=== PATIENT | female | born 1995 | race African-American/Black ===

== ENCOUNTER 2017-03-05 21:41 | Emergency (ER) | payer OTHER ==
[~2017-03-05] VITALS: Ht 170.2 cm; Wt 87.2 kg
[2017-03-05 21:47] VITALS: TEMP 36.9; Ht 170.2 cm; Wt 87.2 kg
[2017-03-05] MEDS: SODIUM CHLORIDE 0.9% 1000ML 1,000 ML IV ONE (22:08)
[2017-03-05] MEDS: XYLOCAINE 1%/SOD BICARB 20 ML VIAL INFIL ONE (22:11)
[2017-03-05] MEDS: ONDANSETRON INJ 2 MG/ML 2 ML VIAL IV STA (22:11)
[2017-03-05] MEDS: MoRPHine SULFATE 4 MG/ML 1 ML CARP\\VIAL IV ONE (22:12)
[2017-03-05 22:37] LABS: HEMATOCRIT 42.3 % (37-47); MEAN CELL VOLUME 82.8 fL (80-100); MEAN CORPUSCULAR HEMOGLOBIN 28.4 pg (25-34); MEAN CORPUSCULAR HGB CONC 34.3 g/dl (32-36); MEAN PLATELET VOLUME 10.8 fL (7.4-10.4); PLATELET COUNT 349 K/uL (130-400); RED BLOOD COUNT 5.11 M/uL (4.2-5.4); WHITE BLOOD COUNT 10.74 K/uL (4.8-10.8)
--- NOTE | 2017-03-05 22:38 | DIAGNOSTIC IMAGING REPORT ---
CHEST ONE VIEW PORTABLE CLINICAL HISTORY: 21 years-old Female presenting with Syncope and fall. Right side chest wall injury. TECHNIQUE: Portable upright AP view of the chest was obtained. COMPARISON: None. FINDINGS: Cardiomediastinal silhouette normal. Lungs and pleural spaces clear. Osseous structures normal. Upper abdomen normal. IMPRESSION: 1. No acute cardiopulmonary disease. Electronically signed by: Avila Rodriguez M.D. 03/05/2017 10:37 PM Dictated Date/Time: 03/05/2017 10:36 PM
--- NOTE | 2017-03-05 22:48 | DIAGNOSTIC IMAGING REPORT ---
HEAD WITHOUT CONTRAST (CT) CLINICAL HISTORY: 21 years-old Female presenting with Syncope and fall. Left side forehead lac. TECHNIQUE: Multidetector CT imaging of the head was performed without the use of intravenous contrast. IV contrast: None. A dose lowering technique was used consistent with the principles of ALARA (as low as reasonably achievable). COMPARISON: None. CT DOSE (mGy.cm): The estimated cumulative dose is 638.56 mGycm. FINDINGS: Third Cook topogram: Unremarkable. Subcutaneous defect over the left frontal region consistent with laceration. This extends to the outer table of the calvarium. No subjacent osseous injury. Ventricles and sulci normal in size. Brain parenchyma normal in appearance with preserved lopez-white differentiation. No mass effect or midline shift. No hemorrhage or acute territorial infarct. No extra-axial fluid collection. Paranasal sinuses and mastoid air cells clear. Calvarium intact. IMPRESSION: 1. No acute intracranial pathology. 2. Left frontal laceration extending to the outer table of the calvarium. No subjacent osseous injury. Electronically signed by: Avila Rodriguez M.D. 03/05/2017 10:47 PM Dictated Date/Time: 03/05/2017 10:44 PM
[2017-03-05 22:53] LABS: BUN/CREATININE RATIO 11.3 (10-20); CALCIUM 8.8 mg/dl (8.5-10.1); CREATININE 0.89 mg/dl (0.60-1.20); POTASSIUM 3.2 mmol/L (3.5-5.1)
[2017-03-05 23:03] LABS: ALB/GLOB RATIO 1.1 (0.9-2); THYROID STIMULATING HORMONE 1.31 uIu/ml (0.300-4.500)
[2017-03-05 23:34] LABS: BASO ABS # 0.11 K/uL (0-0.2); COMPLETE YES; HYPERSEGMENTED POLYS 1+; LYMPH ABS # 4.51 K/uL (1.2-3.4); VACUOLIZATION 1+; VARIANT LYM ABS # 1.72 K/uL
[2017-03-06 00:56] VITALS: BP 121/72; PULSE 71; O2SAT 97
--- NOTE | 2017-03-06 03:46 | EMERGENCY ROOM VISIT NOTE ---
History First contact with patient: 21:46 Chief Complaint: SYNCOPE Stated Complaint: SYNCOPE, LACERATION ABOVE EYE Nursing Triage Summary: pt brought to main ED by EMS. pt donated plasma around 15:00, did not eat after donating. pt states she got up to make food, felt dizzy, went outside for some air and had a syncopal episode. pt hit head on curb during syncope, EMS reports large lac above left eyebrow, bleeding controlled preshospital, dressing in place. pt denies LOC, states "i was just so dizzy." upon arrival, pt alert and oriented x4. breathing WNL. able to ambulate to litter from stretcher. pt rates pain in head 8/10 History of Present Illness The patient is a 21 year old female who presents to the Emergency Room with complaints of syncopal episode with head injury that occurred just prior to arrival. The patient considers herself usually healthy and does not report chronic medical disease. She was feeling at her baseline today and donated plasma around 6-1/2 hours ago. The patient was able to go home and go about the remainder of her day. As it approached dinnertime she began to cook chicken , and states that she felt claustrophobic. The patient was also feeling dizzy, and decided to go outside for fresh air. The patient states that she went outside, suffered her syncopal episode, and evidently she struck the left side of her head on concrete. The patient arrives via EMS and has evidently been acting appropriate since the injury. She believes she is up-to-date on her tetanus. She does not take medication on a regular basis. She has an IUD and denies chance of . She rates her current discomfort an 8/10 has not taken anything [id number] for her symptoms. Review of Systems More than 10 systems were reviewed and otherwise negative with the exception of history of present illness. Past Medical/Surgical History No chronic medical disease Family History No pertinent family history Social History Smoking Status: Never Smoker Occupation Status: [employer] student Current/Historical Medications No Active Prescriptions or Reported Meds Allergies Coded Allergies: No Known Allergies (Unverified , 03/05/17) Physical Exam Vital Signs Date Time Temp Pulse Resp B/P (MAP) Pulse Ox O2 Delivery O2 Flow Rate FiO2 03/06/17 00:56 71 18 121/72 97 9/27/17 00:08 81 18 96 Room Air 03/05/17 22:16 92 03/05/17 21:47 36.9 98 18 129/87 95 Room Air Physical Exam VITALS: Vitals are noted on the nurse's note and reviewed by myself. Vital signs stable. GENERAL: Well-developed, well-nourished, black female who appears mildly uncomfortable but cooperative. HEAD: No booth sign or raccoon eyes. There is a C-shaped complicated 4.0 cm laceration through the left eyebrow to the left upper forehead. This does gape and will require repair. EARS: External ear normal. External auditory canals clear, tympanic membranes pearly lopez without erythema or effusion bilaterally.No hemotympanum EYES: Pupils equal round and reactive to light and accommodation. Conjunctivae without injection, sclerae without icterus. Extraocular movements intact. NOSE: Patent, turbinates without inflammation or discharge. MOUTH: Mucous membranes moist. Tonsils are not enlarged. Pharynx without erythema, blood, or exudate. Uvula midline. Airway patent. NECK: Supple without nuchal rigidity. No lymphadenopathy. No thyromegaly. Cervical spine is nontender. HEART: Regular rate and rhythm without murmurs gallops or rubs. LUNGS: Clear to auscultation bilaterally without wheezes, rales or rhonchi. No retractions or accessory muscle use. CHEST WALL: Mild tenderness appreciated over the right side ribs roughly from the fourth to 7 distribution laterally. No crepitus or flailing. ABDOMEN: Positive normal bowel sounds x 4. Soft, nontender, without masses or organomegaly. No guarding or rebound tenderness. MUSCULOSKELETAL: No muscle atrophy, erythema, or edema noted. Full range of motion without joint tenderness in all extremities. NEURO: Patient was alert and oriented to person place and time. CN II through XII grossly intact. GCS 15. Medical Decision & Procedures ER Provider Diagnostic Interpretation: HEAD WITHOUT CONTRAST (CT) CLINICAL HISTORY: 21 years-old Female presenting with Syncope and fall. Left side forehead lac. TECHNIQUE: Multidetector CT imaging of the head was performed without the use of intravenous contrast. IV contrast: None. A dose lowering technique was used consistent with the principles of ALARA (as low as reasonably achievable). COMPARISON: None. CT DOSE (mGy.cm): The estimated cumulative dose is 638.56 mGycm. FINDINGS: Pattern Room Attendant topogram: Unremarkable. Subcutaneous defect over the left frontal region consistent with laceration. This extends to the outer table of the calvarium. No subjacent osseous injury. Ventricles and sulci normal in size. Brain parenchyma normal in appearance with preserved lopez-white differentiation. No mass effect or midline shift. No hemorrhage or acute territorial infarct. No extra-axial fluid collection. Paranasal sinuses and mastoid air cells clear. Calvarium intact. IMPRESSION: 1. No acute intracranial pathology. 2. Left frontal laceration extending to the outer table of the calvarium. No subjacent osseous injury. [~ rep ct add3]] CHEST ONE VIEW PORTABLE CLINICAL HISTORY: 21 years-old Female presenting with Syncope and fall. Right side chest wall injury. TECHNIQUE: Portable upright AP view of the chest was obtained. COMPARISON: None. FINDINGS: Cardiomediastinal silhouette normal. Lungs and pleural spaces clear. Osseous structures normal. Upper abdomen normal. IMPRESSION: 1. No acute cardiopulmonary disease. Laboratory Results 03/05/17 22:07 Red Blood Count 5.11, Mean Corpuscular Volume 82.8, Mean Corpuscular Hemoglobin 28.4, Mean Corpuscular Hemoglobin Concent 34.3, Mean Platelet Volume 10.8 03/05/17 22:07 Test 03/05/17 22:07 White Blood Count 10.74 K/uL (4.8-10.8) Red Blood Count 5.11 M/uL (4.2-5.4) Hemoglobin 14.5 g/dL (12.0-16.0) Hematocrit 42.3 % (37-47) Mean Corpuscular Volume 82.8 fL (80-100) Mean Corpuscular Hemoglobin 28.4 pg (25-34) Mean Corpuscular Hemoglobin Concent 34.3 g/dl (32-36) Platelet Count 349 K/uL (130-400) Mean Platelet Volume 10.8 fL (7.4-10.4) RDW Standard Deviation 38.6 fL (36.4-46.3) RDW Coefficient of Variation 12.7 % (11.5-14.5) Neutrophils % (Manual) 33.0 % Band Neutrophils % (Manual) % Lymphocytes % (Manual) 42.0 % Variant Lymphocytes % (manual) 16.0 % Monocytes % (Manual) 5.0 % Eosinophils % (Manual) 3.0 % Basophils % (Manual) 1.0 % Neutrophils # (Manual) 3.54 K/uL (1.4-6.5) Total Absolute Neutrophils 3.54 K/uL (1.4-6.5) Lymphocytes # (Manual) 4.51 K/uL (1.2-3.4) Absolute Variant Lymphocytes 1.72 K/uL Total Absolute Lymphocytes 6.23 K/uL (1.2-3.4) Monocytes # (Manual) 0.54 K/uL (0.11-0.59) Eosinophils # (Manual) 0.32 K/uL (0-0.5) Basophils # (Manual) 0.11 K/uL (0-0.2) Hypersegmented Polys 1+ Percent Large Granular Lymphocytes % Toxic Vacuolation 1+ Red Blood Cell Morphology Unremarkable Anion Gap 12.0 mmol/L (3-11) Est Creatinine Clear Calc Drug Dose 114.4 ml/min Estimated GFR () 108.1 Estimated GFR (Non- 93.3 BUN/Creatinine Ratio 11.3 (10-20) Calcium Level 8.8 mg/dl (8.5-10.1) Magnesium Level 2.0 mg/dl (1.8-2.4) Total Bilirubin 0.7 mg/dl (0.2-1) Aspartate Amino Transf (AST/SGOT) 18 U/L (15-37) Alanine Aminotransferase (ALT/SGPT) 14 U/L (12-78) Alkaline Phosphatase 65 U/L (45-117) Total Protein 7.6 gm/dl (6.4-8.2) Albumin 4.0 gm/dl (3.4-5.0) Globulin 3.6 gm/dl (2.5-4.0) Albumin/Globulin Ratio 1.1 (0.9-2) Thyroid Stimulating Hormone (TSH) 1.310 uIu/ml (0.300-4.500) Medications Administered Medications (Trade) Dose Ordered Sig/Walker Route Start Time Stop Time Status Last Admin Dose Admin Lidocaine HCl (Buffered Lidocaine 1% Inj) 20 ml NOW ONCE INFIL 03/05/17 22:00 03/05/17 22:01 DC 03/05/17 22:11 20 ML Morphine Sulfate (MoRPHine SULFATE INJ) 4 mg NOW ONCE IV 9/26/17 22:00 03/05/17 22:01 DC 03/05/17 22:12 4 MG Sodium Chloride 1,000 ml @ 999 mls/hr Q1H1M ONCE IV 03/05/17 22:00 03/05/17 23:00 DC 03/05/17 22:08 999 MLS/HR Ondansetron HCl (Zofran Inj) 4 mg NOW STAT IV 03/05/17 21:54 03/05/17 21:56 DC 03/05/17 22:11 4 MG Procedure Laceration repair. Patient elects to have their laceration repaired. Verbal consent was obtained to perform the procedure. There is an abundance of materials available for the procedure. Patient is not allergic to latex. Using sterile technique the wound was cleaned with Betadine. The area was sterilely draped. 5 ml of 1% buffered lidocaine was used to anesthetize the left eyebrow laceration. Once the patient was anesthetized, the wound was copiously irrigated under pressure with sterile saline. The wound was explored and there were no deep structures injured such as tendons, bone, or significant blood vessels. The laceration was repaired using 2 running subcutaneous 6-0 Vicryl sutures and 7 simple interrupted 5-0 nylon sutures with the wound edges being well approximated. Hemostasis was achieved. The area was cleaned with sterile saline and dressed with bacitracin ointment and bandage. Patient tolerated the procedure well without complications. Blood loss was negligible. ED Course Physical exam and history were performed. Nursing notes, EMR, and Medication List were personally reviewed. Patient appears to have suffered a syncopal episode versus fall with subsequent head injury and laceration. On examination the patient appears well and certainly nontoxic. IV access was established and labs were obtained. She has some complaints of right chest wall discomfort as well as right hand pain, however these areas are without significant findings on exam. EKG was performed was normal sinus rhythm without acute ST elevation or significant ectopy. She was hydrated with normal saline. CT scan of the head was performed. The patient's blood work is as above. She does not have a significant elevated white blood cell count, gross anemia, bandemia, or significant electrolyte imbalance. X-rays do not show evidence of acute process. CT scan does not show fracture or intracranial bleed. Her laceration was repaired as above, and she tolerated this well. Overall the patient remained in stable condition for several hours of emergency department care. She did not have any recurrence of her symptoms, and I suspect that she may have had a mechanical fall or possibly a vasovagal episode. I do feel that she should have close interval follow-up with her primary care physician, but she is otherwise well for discharge home. The patient does have friends who are able to watch her over the next few days. The patient was certainly invited back to the ER with any new, worsening, or concerning symptoms. She voiced understanding and rated her discomfort a 0/10 at the time of departure. The chart was completed utilizing Built In Speech Voice Recognition Software. Grammatical errors, random word insertions, pronoun errors, and incomplete sentences are an occasional consequence of this system due to software limitations, ambient noise, and hardware issues. Any formal questions or concerns about the content, text, or information contained within the body of this dictation should be directly addressed to the provider for clarification. . Medical Decision Differential diagnosis: Etiologies such as vasovagal event, infection, hypoglycemia, electrolyte abnormalities, cardiac sources, intracerebral event, toxicologic, neurologic, as well as others were entertained. Impression Primary Impression: Syncope Additional Impressions: Fall Head injury Laceration Departure Information Prescriptions No Active Prescriptions or Reported Meds Patient Instructions My [facility] Problem Qualifiers Primary Impression: Syncope Encounter type: initial encounter Additional Impressions: Fall Encounter type: initial encounter Qualified Codes: W19.XXXA - Unspecified fall, initial encounter Head injury Encounter type: initial encounter Qualified Codes: S09.90XA - Unspecified injury of head, initial encounter
--- NOTE | 2017-03-06 06:41 | DIAGNOSTIC IMAGING REPORT ---
R HAND MIN 3 VIEWS ROUTINE CLINICAL HISTORY: Right hand pain status post trauma COMPARISON: None. DISCUSSION: No fractures or dislocations are visualized. IMPRESSION: No fractures or dislocations identified. Electronically signed by: Ramakrishna Hoyos M.D. 03/06/2017 6:40 AM Dictated Date/Time: 03/06/2017 6:39 AM
== END 2017-03-06 00:57 | disposition home or self-care (01) ==
LOC: C.EDC 21:44
DX: R55 Syncope and collapse (principal); S01.112A Laceration without foreign body of left eyelid and periocular area, initial encounter; S09.90XA Unspecified injury of head, initial encounter; W19.XXXA Unspecified fall, initial encounter